=== PATIENT | male | born 1950 | race Caucasian/White ===

== ENCOUNTER 2018-04-22 06:10 | Day surgery (SDC) | payer MEDICARE, BC ==
[2018-04-21 11:00] LABS: HEMATOCRIT 44.3 % (42.0-54.0); HEMOGLOBIN 15.3 g/dL (13.5-17.5); MCH 32.3 pg (26.0-34.0); MCHC 34.5 g/dL (31.0-37.0); MCV 93.7 fL (80.0-100.0); MEAN PLATELET VOLUME 11.5 fL (7.4-10.4); RBC 4.73 10x6/uL (4.20-6.10); RDW 13.9 % (11.5-14.5)
[~2018-04-22] VITALS: Ht 188 cm; Wt 108.9 kg
--- NOTE | ~2018-04-22 | OP ---
PATIENT NAME: BRAYAN HEATH MEDICAL RECORD: [id number] :54 LOCATION:[facility] ADMISSION DATE: SURGEON: COCO ROUSSEAU MD DATE OF OPERATION: 04/22/2018 SURGEON: COCO ROUSSEAU MD ANESTHESIA: TIVA by Jennifer Page CRNA. DIAGNOSIS: Elevated PSA 7.67. PROCEDURE: Transrectal ultrasound and prostate biopsy. FINDINGS: 41 gram prostate with intraprostatic stones. SPECIMEN: Prostate biopsy cores. BLOOD LOSS: Minimal. CLINICAL HISTORY: This is a 67-year-old male, who has an elevated PSA of 7.67 on 11/20/2017. His PSA last year was in the 4 range. He does not have any family history of BPH or prostate cancer. He has no voiding symptoms. He comes today for a transrectal ultrasound and prostate biopsy. He is not allergic to any medications. He was given Ancef truer pinion and wheel to the OR. DESCRIPTION OF PROCEDURE: The patient was given IV sedation. He was then placed into dorsal lithotomy position. The transrectal ultrasound probe was introduced and prostate size measurements were obtained. Sextant biopsies were then obtained with at least 3 cores from every sextant. Once all the specimens were acquired, the procedure was terminated. The patient was awakened and brought back to the preoperative holding area. I will see him in followup next week to review his pathology with him. TRANSINT:[id number] Voice Confirmation ID: [id number] DOCUMENT ID: [id number] COCO ROUSSEAU MD at 1110 CC: [id number] DICTATION DATE: 04/22/18 0852 ROUTE AIDE: 04/22/18 0951 REG [facility] [address] [place] [address]
[~2018-04-22 06:10] MED LIST: BETAPACE 80 MG80 MG PO; CARTIA XT180 MG PO; LIPITOR40 MG PO; LOTENSIN20 MG PO
[2018-04-22 06:52] VITALS: BP 136/86; Ht 188 cm; Wt 108.9 kg
== END 2018-04-22 10:25 | disposition home or self-care (01) ==
LOC: D.OPS 06:10 → D.PAN 07:30 → D.OPS 08:15 → D.PAN 08:15 → D.OPS 08:30
PROVIDERS: Anesthesiology
DX: R97.20 Elevated prostate specific antigen [PSA] (principal); N42.0 Calculus of prostate; Z01.812 Encounter for preprocedural laboratory examination